=== PATIENT | male | born 1945 | race Caucasian/White ===

== ENCOUNTER → 2017-06-18 09:04 | Outpatient (CLI) | payer OTHER, MEDICARE, SELFPAY | DX: R69 Illness, unspecified (principal) | CPT/HCPCS: 82140 ==

== ENCOUNTER → 2017-10-14 15:30 | Outpatient (REF) | payer OTHER, MEDICARE, SELFPAY | LOC: LABSPEC 15:30 | DX: Z00.00 Encounter for general adult medical examination without abnormal findings (principal) | CPT/HCPCS: 82140 ==